=== PATIENT | female | born 1945 | race Caucasian/White ===

== ENCOUNTER 2016-07-16 18:20 | Emergency (ER) | payer MEDICARE, OTHER ==
[~2016-07-16] VITALS: Ht 162.6 cm; Wt 126.8 kg
[~2016-07-16 18:20] MED LIST: ASPI325T32 PO; CIPR-231 PO; METR500T PO
[2016-07-16 18:51] VITALS: BP 191/102; PULSE 96; RESP 18; O2SAT 98
[2016-07-17] MEDS ORDERED: CEFU500T61 PO (05:22)
== END 2016-07-16 20:00 | disposition left against medical advice (07) ==
LOC: SED 18:20
DX: K59.00 Constipation, unspecified (principal)

== ENCOUNTER 2016-07-16 23:46 | Emergency (ER) | payer MEDICARE, OTHER ==
[~2016-07-16] VITALS: Ht 162.6 cm; Wt 129.1 kg
[2016-07-16 23:48] VITALS: PULSE 116; RESP 20; O2SAT 96
[2016-07-17 00:15] VITALS: BP 149/91; PULSE 91; RESP 16; O2SAT 99
--- NOTE | 2016-07-17 00:36 | ED.REPORT ---
HPI-Abd Pain F 40 and Over Date of Service Jul 17, 2016 ED Provider: Pt is a 70 y/o female with a history of diabetes who reports to the ER complaining of abdominal pain onset yesterday at 11 am. She experiences intermittent projectile vomiting since onset. She also reports being constipated. She claims to have had 1 bowel movement the past 2 weeks. She took stool-softeners but they provided little relief. She denies fever. Nursing Notes Stated Complaint: ABDOMINAL PAIN, VOMITING Chief Complaint: Female Abdominal Pain Nursing Notes Reviewed: Yes Allergies: Coded Allergies: Penicillins (Verified Allergy, Intermediate, Anaphylaxis, 03/05/16) Sulfa (Sulfonamide Antibiotics) (Verified Allergy, Intermediate, rash, 03/05) doxycycline (Verified Allergy, Unknown, 03/05/16) Opioids - Morphine Analogues (Verified Adverse Reaction, Unknown, GI upset /combative, 03/05/16) acetaminophen (Verified Adverse Reaction, Unknown, nausea, 03/05/16) codeine (Verified Adverse Reaction, Unknown, angry, 06/02/16) hydromorphone (Verified Adverse Reaction, Unknown, depressed respiration, 03/05/16) ibuprofen (Verified Adverse Reaction, Unknown, upset stomach, 03/05/16) propoxyphene (Verified Adverse Reaction, Unknown, angry, 03/05/16) Scheduled Aspirin (Aspirin) 325 Mg Tablet 650 MG PO BID Ciprofloxacin (Cipro) 500 Mg Tablet 500 MG PO BID Ciprofloxacin (Cipro) 500 Mg Tablet 500 MG PO BID Metronidazole (Flagyl) 500 Mg Tablet 500 MG PO Q8H General Time Seen by MD: 00:36 Chief Complaint Abdominal pain Hx Obtained From: Patient Arrived By: Walk-in Sudden in Onset?: Yes Onset Occurred: 1 day ago Symptom Duration: Intermittent Progression since Onset: Waxes and wanes Location: : Diffuse Quality: Painful Severity: Current: Mild Associated with: Reports: Constipation, Vomiting (projectile), Denies: Fever Similar Sx Previous: No Past Medical History Past Medical History Hypertension Diabetes mellitus Hypothyroidism Diverticulitis Family History Noncontributory Social History Drug Use: Denies drug use Other Social History: Good social support, , Local resident Ambulatory Status Independent Review of Systems Respiratory: Denies: Non-productive cough GI: Reports: Abdominal pain, Constipation, Vomiting, Denies: Nausea Complete sys rev & neg: except as marked. Physical Exam Physical Exam Notes: Vital Signs Vital Signs (First) Date Time Temp Pulse Resp B/P Pulse Ox O2 Delivery O2 Flow Rate FiO2 07/16/16 23:48 36.5 116 20 96 07/17/16 00:15 149/91 Room Air Initial VS: Reviewed Head / Eyes: Atraumatic, Normocephalic, PERRL Neck: Supple, Non-tender, Full range of motion Extremities: Vascular intact, Neuro intact, No swelling, No tenderness Skin: Warm, Dry, No cyanosis Neurologic: Alert, Oriented, Nonfocal Psychiatric: Mood/affect normal, Behavior normal, Normal thought content General/Constitutional: Awake, Alert, Well nourished, Cooperative Respiratory / Chest: Breath sounds NL, Breath sounds = bilat, No respiratory distress Cardiovascular: Heart rate NL, Regular rhythm, Heart sounds NL Abdomen: Soft, Non-tender, BS normoactive Rectal exam: No fecal impaction. Scant brown stool guiac negative. Back: Atraumatic, Full range of motion Interpretation & Diagnostics Lab Results Interpretation Result Diagram: 07/17/16 0115 07/17/16 0115 Test 07/17/16 01:15 07/17/16 01:30 White Blood Count 9.2th/mm3 (3.8-10.1) Red Blood Count 4.95mil/mm3 (3.90-5.20) Hemoglobin 13.4g/dL (12.0-15.6) Hematocrit 41.1% (35.0-46.0) Mean Corpuscular Volume 83.0fL (81-100) Mean Corpuscular Hemoglobin 27.1pg (27.0-35.0) Mean Corpuscular Hemoglobin Concent 32.6% (32.0-37.0) Red Cell Distribution Width 14.0% (12.3-15.4) Platelet Count 235bil/L (150-400) Neutrophils (%) (Auto) 81.9% (40-74) Lymphocytes (%) (Auto) 9.9% (14-46) Monocytes (%) (Auto) 7.0% (4-12) Eosinophils (%) (Auto) 1.0% (0-5) Basophils (%) (Auto) 0.1% (0-3) Sodium Level 143mEq/L (134-144) Potassium Level 3.9mEq/L (3.5-5.2) Chloride Level 102mEq/L (97-108) Carbon Dioxide Level 28mmol/L (18-29) Blood Urea Nitrogen 14mg/dL (8-27) Creatinine 1.04mg/dL (0.57-1.00) Estimat Glomerular Filtration Rate 75mL/min (>59) Glucose Level 144mg/dL (60-99) Calcium Level 9.5mg/dL (8.5-10.1) Magnesium Level 2.1mg/dL (1.6-2.6) Total Bilirubin 0.5mg/dL (0.0-1.2) Aspartate Amino Transf (AST/SGOT) 13U/L (0-50) Alanine Aminotransferase (ALT/SGPT) 11U/L (0-32) Alkaline Phosphatase 73U/L (25-165) Total Protein 7.2g/dL (6.4-8.4) Albumin 4.3g/dL (3.4-5.0) Lipase 26U/L (13-60) Hold Molina Top Tube Received (Received) Urine Color Dark yellow (YELLOW) Urine Appearance Cloudy (CLEAR,HAZY) Urine pH 7.0 (5.0-8.0) Urine Specific [place] 1.015 (1.003-1.035) Urine Protein Tracemg/dL (NEG,TRACE) Urine Glucose (UA) Negativemg/dL (NEGATIVE) Urine Ketones Tracemg/dL (NEGATIVE) Urine Occult Blood Trace (NEGATIVE) Urine Nitrite Negative (NEGATIVE) Urine Bilirubin Negative (NEGATIVE) Urine Urobilinogen Normalmg/dL (NORMAL) Urine Leukocyte Esterase Trace (NEGATIVE) Urine RBC 0-2/hpf (0-2) Urine WBC 6-10/hpf (0-5) Urine Epithelial Cells Many/hpf (NONE-MOD) Urine Crystals None seen (NONE SEEN) Urine Bacteria Moderate/hpf (NONE-FEW) Urine Hyaline Casts None/lpf (NONE) Urine Granular Casts None seen (NONE SEEN) Urine Waxy Casts None seen (NONE SEEN) Urine Red Blood Cell Casts None seen (NONE SEEN) Urine White Blood Cell Casts None seen (NONE SEEN) Urine Mucus Present (None Seen) Urine Trichomonas None seen (NONE SEEN) Urine Yeast None (NONE SEEN) Urine Culture Reflexed Indicated Re-Eval/Medical Decision Counseled Regarding: Diagnosis, Need for follow-up, When/why to return to ED Discharge & Departure Shift Change Sign-Out Patient Care Transferred: Yes Discussed Complaint(s): Yes Laboratory Evaluation: Back, reviewed by me Imaging Studies: Ordered, not yet done Primary Impression: Abdominal pain Referrals: Stefano King MD (PCP) Care Transferred to: [facility] Transferred at: 02:49 Yonatan Garduno MD Jul 17, 2016 00:36 Bretin Slater Jul 17, 2016 00:42
[2016-07-17] MEDS ORDERED: 0.9% Sodium Chloride 1,000 ML IV ONE (00:46)
[2016-07-17] MEDS ORDERED: Pantoprazole 4 mg/mL 10 mL Inj IVPUSH ONE (00:50)
[2016-07-17] MEDS ORDERED: Ondansetron 2 mg/mL 2 mL Inj IVPUSH PRN (00:50)
[2016-07-17] MEDS ORDERED: HYDROmorphone 0.5 mg/0.5 mL iSecure Syringe IVPUSH PRN (00:50)
[2016-07-17 01:47] LABS: BASOPHILS % (AUTO) 0.1 % (0-3); Mean Corpuscular Hemoglobin 27.1 pg (27.0-35.0); NEUTROPHILS % (AUTO) 81.9 % (40-74); Platelet Count 235 bil/L (150-400)
[2016-07-17 02:00] LABS: Magnesium 2.1 mg/dL (1.6-2.6)
[2016-07-17 02:27] VITALS: BP 142/78; PULSE 65
[2016-07-17 02:28] VITALS: BP 148/86; PULSE 82
[2016-07-17 02:29] VITALS: BP 146/87; PULSE 93
[2016-07-17 02:44] LABS: APPEARANCE,URINE CLOUDY (CLEAR,HAZY); COLOR,URINE DARK YELLOW (YELLOW)
[2016-07-17 02:45] LABS: OCCULT BLOOD,URINE TRACE (NEGATIVE); UROBILINOGEN,URINE NORMAL (NORMAL)
[2016-07-17 05:06] VITALS: BP 142/66; PULSE 59; RESP 18; O2SAT 97
[2016-07-17] MEDS ORDERED: CEFU500T61 PO (05:22)
[2016-07-17 05:33] VITALS: BP 140/70; PULSE 61; RESP 18; O2SAT 100
--- NOTE | 2016-07-17 10:14 | DRSVH ---
PROCEDURE: X-RAY ACUTE ABDOMINAL SERIES ([id number]) INDICATIONS: abdomen pain TECHNIQUE: One view chest and two views of the abdomen were acquired. COMPARISON: None. FINDINGS: Surgical changes and devices: None. Chest: Lungs are clear. Heart size is normal. No pleural effusions. No pneumoperitoneum. Abdomen: Nonspecific bowel gas pattern. There is mild prominence of multiple small bowel loops withi n the midabdomen, otherwise bowel gas pattern is normal. No pneumatosis or bowel thickening. No pne umoperitoneum. Bones: No suspicious bony lesions. IMPRESSION: Nonspecific bowel gas pattern. If patient's symptoms persist, recommend repeat imaging or CT. Dictated by: Gonzalo Baca [facility] Interpreted: Chloe Dueñas MD on 07/17/2016 at 10:14 Transcribed by: KIM on 07/17/2016 at 10:14 Approved by: Chloe Dueñas MD, PhD on 07/17/2016 at 16:34
--- NOTE | 2016-07-17 10:24 | DRSVH ---
PROCEDURE: CT ABDOMEN AND PELVIS WITH CONTRAST ([id number]) INDICATIONS: abd pain TECHNIQUE: After the administration of intravenous contrast, 5 mm thick sections acquired from the diaphragm to the symphysis. 5 mm coronal and sagittal reformats were acquired. For radiation dose reduction, the following was used: automated exposure control, adjustment of mA and/or kV according to patient siz e. COMPARISON: [facility], CR, XR ABD ACUTE SERIES 3VW, 07/17/2016, 2:32. [facility], CT, CT ABD PELVIS W CON, 05/11/2016, 3:45. [facility], CT, CT ABD PELVIS W CON, , 11:46. FINDINGS: Image quality: Excellent. ABDOMEN: Lung bases: Lung bases are clear. Heart size is normal. Solid organs: Liver and spleen are normal in size and enhancement. Gallbladder is within normal domínguez its. Biliary system is non dilated. Pancreas enhances normally. No adrenal nodules. Kidneys demon strate normal size and enhancement, without hydronephrosis. Peritoneum and bowel: Bowel loops demonstrate normal caliber. Circumferential wall thickening involv ing the terminal ileum is not significantly changed compared to prior examination. Scattered divertic ada noted in the colon without evidence of diverticulitis. No free air. The appendix is normal. Small amount of low-density free fluid noted in the lower pelvis. Nodes and vessels: No retroperitoneal or mesenteric adenopathy by size criteria. Aorta and inferior vena cava are normal in size. Miscellaneous: Fat-containing umbilical hernia which contains a small amount of ascites necessarily c hanged compared to prior CT scan. PELVIS: Genitourinary: Bladder wall thickness is normal. 3.1 cm left adnexal cyst is noted. Miscellaneous: No inguinal hernias or adenopathy. Bones: No suspicious bony lesions. No vertebral body compression fractures. IMPRESSION: 1. Terminal ileitis not significantly changed compared to 05/11/2016. Findings remain concerning for inflammatory bowel disease such as Crohn's. 2. Colonic diverticulosis without evidence diverticulitis. 3. Small amount of free fluid in lower pelvis. 4. No evidence small bowel obstruction. Dictated by: Chloe Dueñas MD, PhD on 07/17/2016 at 10:22 Approved by: Chloe Dueñas MD, PhD on 07/17/2016 at 10:22
== END 2016-07-17 05:23 | disposition home or self-care (01) ==
LOC: SED 23:46
DX: N39.0 Urinary tract infection, site not specified (principal); B96.89 Other specified bacterial agents as the cause of diseases classified elsewhere; K52.9 Noninfective gastroenteritis and colitis, unspecified; K59.00 Constipation, unspecified; K44.9 Diaphragmatic hernia without obstruction or gangrene; I10 Essential (primary) hypertension; E03.9 Hypothyroidism, unspecified; E11.9 Type 2 diabetes mellitus without complications; Z79.82 Long term (current) use of aspirin; Z88.5 Allergy status to narcotic agent; Z88.0 Allergy status to penicillin; Z88.6 Allergy status to analgesic agent; Z88.2 Allergy status to sulfonamides; Z88.8 Allergy status to other drugs, medicaments and biological substances; Z88.1 Allergy status to other antibiotic agents
CPT/HCPCS: 36415; 74022; 74177; 80053; 81000; 83690; 83735; 85025; 87086; 87088; 96361; 96374; 96375; 99285; J2405; J7030; Q9967

== ENCOUNTER 2016-10-08 20:55 | Inpatient (IN) | payer MEDICARE, OTHER ==
[~2016-10-08] VITALS: Ht 165.1 cm; Wt 123.8 kg
[~2016-10-08 20:55] MED LIST changes: +CEFU500T61 PO
[2016-10-08 21:13] VITALS: BP 143/69; PULSE 43; RESP 16; O2SAT 100
[2016-10-08 21:25] LABS: BASOPHILS % (AUTO) 0.3 % (0-3); EOSINOPHILS % (AUTO) 2.2 % (0-5); MONOCYTES % (AUTO) 8.5 % (4-12); Mean Corpuscular Hemoglobin 27.4 pg (27.0-35.0); Mean Corpuscular Volume 84.8 fL (81-100); NEUTROPHILS % (AUTO) 71.4 % (40-74); Platelet Count 275 bil/L (150-400)
[2016-10-08] MEDS ORDERED: Ondansetron 2 mg/mL 2 mL Inj ONE ×2 (21:37→22:41)
--- NOTE | 2016-10-08 21:40 | ED.REPORT ---
HPI-Abd Pain F 40 and Over Date of Service Oct 08, 2016 ED Provider: Prieto Nair MD Patient 70 y/o female with a history of Afib, HTN, DM, diverticulitis and hypothyroidism who present to the ED via EMS with a "burning" RLQ abd pain onset 1 hour before arrival in the ED that radiates into her groin and has been progressively worsening. Her most resent bowel movement was a day and a half ago and she has been seen previously for constipation. Today just prior to onset the patient states "I had a feeling like I needed to have a BM, but I couldn't". She admits to feeling nauseated but denies dysuria, or any other bowel problems in recent history. Nursing Notes Stated Complaint: LOWER ABD PAIN Chief Complaint: Female Abdominal Pain Nursing Notes Reviewed: Yes Allergies: Coded Allergies: Penicillins (Verified Allergy, Intermediate, Anaphylaxis, 03/05/16) Sulfa (Sulfonamide Antibiotics) (Verified Allergy, Intermediate, rash, 03/05) doxycycline (Verified Allergy, Unknown, 03/05/16) Opioids - Morphine Analogues (Verified Adverse Reaction, Unknown, GI upset /combative, 03/05/16) acetaminophen (Verified Adverse Reaction, Unknown, nausea, 03/05/16) codeine (Verified Adverse Reaction, Unknown, angry, 06/02/16) hydromorphone (Verified Adverse Reaction, Unknown, depressed respiration, 03/05/16) ibuprofen (Verified Adverse Reaction, Unknown, upset stomach, 03/05/16) propoxyphene (Verified Adverse Reaction, Unknown, angry, 03/05/16) Scheduled Aspirin (Aspirin) 325 Mg Tablet 650 MG PO BID Cefuroxime Axetil (Cefuroxime) 500 Mg Tablet 500 MG PO BID Ciprofloxacin (Cipro) 500 Mg Tablet 500 MG PO BID Ciprofloxacin (Cipro) 500 Mg Tablet 500 MG PO BID Metronidazole (Flagyl) 500 Mg Tablet 500 MG PO Q8H General Time Seen by MD: 21:27 Chief Complaint Abdominal pain Hx Obtained From: Patient Arrived By: Ambulance Sudden in Onset?: Yes Onset Occurred: 46 - 59 minutes ago Symptom Duration: Since onset Progression since Onset: Gradually worsening Location: : Abdomen lower Quality: Burning Associated with: Denies: Fever, Vomiting Pertinent Negative: Relieved by nothing Past Medical History Past Medical History Hypertension Diabetes mellitus Hypothyroidism Diverticulitis Reports: Atrial fibrillation Past Surgical History L arm surgery Family History Noncontributory Smoking History Never Smoker Social History Drug Use: Denies drug use Other Social History: Good social support, , Local resident Ambulatory Status Independent Review of Systems GI: Reports: Abdominal pain, Constipation, Nausea, Denies: Vomiting Complete sys rev & neg: except as marked. Physical Exam Vital Signs Vital Signs (First) Date Time Temp Pulse Resp B/P Pulse Ox O2 Delivery O2 Flow Rate FiO2 10/08/16 21:13 35.9 43 16 143/69 100 Room Air Initial VS: Reviewed Head / Eyes: Atraumatic, Normocephalic, PERRL ENT: Mucous membranes moist, Conjunctiva normal Neck: Full range of motion Extremities: Vascular intact, Neuro intact, No swelling Skin: Warm, Dry, No cyanosis Neurologic: Alert, Oriented, Nonfocal Psychiatric: Mood/affect normal, Behavior normal, Normal thought content General/Constitutional: Awake, Alert Respiratory / Chest: Breath sounds NL, Breath sounds = bilat, No respiratory distress, No rales, No rhonchi, No wheezing, No stridor Cardiovascular: Heart rate NL, Regular rhythm, Heart sounds NL, Peripheral circulation NL Tenderness/Guarding/Rebound: Positive: Tender LUQ..., Tender RUQ... Bowel Sounds / Distention: Positive: Bowel sounds hyperactive Paplable firm mass in midlie above umbilicus. Firm, mildly tender. Not reucible. Interpretation & Diagnostics Lab Results Interpretation Result Diagram: 10/08/16212110/08/162121 Test 10/08/16 21:22 10/09/16 00:25 White Blood Count 8.8th/mm3 (3.8-10.1) Red Blood Count 4.42mil/mm3 (3.90-5.20) Hemoglobin 12.1g/dL (12.0-15.6) Hematocrit 37.5% (35.0-46.0) Mean Corpuscular Volume 84.8fL (81-100) Mean Corpuscular Hemoglobin 27.4pg (27.0-35.0) Mean Corpuscular Hemoglobin Concent 32.3% (32.0-37.0) Red Cell Distribution Width 14.1% (12.3-15.4) Platelet Count 275bil/L (150-400) Neutrophils (%) (Auto) 71.4% (40-74) Lymphocytes (%) (Auto) 17.4% (14-46) Monocytes (%) (Auto) 8.5% (4-12) Eosinophils (%) (Auto) 2.2% (0-5) Basophils (%) (Auto) 0.3% (0-3) Sodium Level 139mEq/L (134-144) Potassium Level 3.9mEq/L (3.5-5.2) Chloride Level 98mEq/L (97-108) Carbon Dioxide Level 23mmol/L (18-29) Blood Urea Nitrogen 16mg/dL (8-27) Creatinine 1.10mg/dL (0.57-1.00) Estimat Glomerular Filtration Rate 71mL/min (>59) Glucose Level 163mg/dL (60-99) Calcium Level 9.6mg/dL (8.5-10.1) Magnesium Level 2.1mg/dL (1.6-2.6) Total Bilirubin 0.3mg/dL (0.0-1.2) Aspartate Amino Transf (AST/SGOT) 21U/L (0-50) Alanine Aminotransferase (ALT/SGPT) 16U/L (0-32) Alkaline Phosphatase 75U/L (25-165) Troponin T 0.010ug/L (0.0-0.011) Total Protein 7.2g/dL (6.4-8.4) Albumin 3.9g/dL (3.4-5.0) Lipase 62U/L (13-60) Urine Color Yellow (YELLOW) Urine Appearance Clear (CLEAR,HAZY) Urine pH 7.0 (5.0-8.0) Urine Specific Chemult 1.010 (1.003-1.035) Urine Protein Negativemg/dL (NEG,TRACE) Urine Glucose (UA) Negativemg/dL (NEGATIVE) Urine Ketones Negativemg/dL (NEGATIVE) Urine Occult Blood Negative (NEGATIVE) Urine Nitrite Negative (NEGATIVE) Urine Bilirubin Negative (NEGATIVE) Urine Urobilinogen Normalmg/dL (NORMAL) Urine Leukocyte Esterase Trace (NEGATIVE) Urine RBC 0-2/hpf (0-2) Urine WBC 0-5/hpf (0-5) Urine Epithelial Cells Moderate/hpf (NONE-MOD) Urine Crystals None seen (NONE SEEN) Urine Bacteria Few/hpf (NONE-FEW) Urine Hyaline Casts None/lpf (NONE) Urine Granular Casts None seen (NONE SEEN) Urine Waxy Casts None seen (NONE SEEN) Urine Red Blood Cell Casts None seen (NONE SEEN) Urine White Blood Cell Casts None seen (NONE SEEN) Urine Mucus Present (None Seen) Urine Trichomonas None seen (NONE SEEN) Urine Yeast None (NONE SEEN) Urinalysis Comment None Urine Culture Reflexed Indicated General Lab Results Interp 1: Labs reviewed ECG Interpretation Time: 21:15 Interpreted by: ED physician Rhythm / Conduction: Bradycardia (45) CT Abd / Pelvis Interpretation Conclusion: Findings suggestive of SBO whoch appears secondary to incarceration of a loop of small bowel within a ventral abdominal hernia. Diverticulosis. Findings suggestive of a small 2.7cm left ovarian cyst. Study type: Abdominal CT IV contrast Interpretation / Wet Read by: Interpret - Radiologist Re-Eval/Medical Decision Med Decision/Clinical Course Severe diffuse abd pain, abrupt in onset. Exam and imaging consistent with incarcerated hernia/SBO. Reported adverse RXN to opiates not observed here today with use of morphine. IV fluids and anti emetics given, NG ordered. Will admit to surgery. Bradycardia noted, ECG O/W normal and trop normal Re-Evaluation/Progress : Time of Eval: 01:01 Re-Evaluation/Progress Note: Updated pt of labs and imaging results. Recommended admission. Pt understands and agrees with plan. All questions addressed. Consultation : Referral / Consult Name: Kelby Crane MD Consulted With: Surgeon Sap Business Analyst: Will see patient, Accepts admit Note: asks for NG to be placed Counseled Regarding: Diagnosis, Lab results, Need for admission Discharge & Departure Primary Impression: Incarcerated ventral hernia Additional Impressions: Small bowel obstruction Sinus bradycardia Disposition: ADMITTED TO HOSPITAL Discharge Condition All VS Reviewed: Yes Referrals: Stefano King MD (PCP) Scribe Attestation Portions of this note were transcribed by Guillermo Mays and Jalyn Rader. I, Dr. Nair personally performed the history, physical exam and medical decision- making; I reviewed and confirmed the accuracy of the information in the transcribed note. Signed by: Guillermo Mays and Jalyn Rader, [place], 10/09/2016 and 0102. copies to: Stefano King MD, Donald L MD Oct 08, 2016 21:40 Guillermo Mays Oct 08, 2016 21:45 Jalyn Rader Oct 08, 2016 23:13
[2016-10-08 21:48] LABS: Magnesium 2.1 mg/dL (1.6-2.6)
[2016-10-09] VITALS (18 sets, daily range): BP systolic 127–194; BP diastolic 68–145; PULSE 48–100; RESP 12–18; O2SAT 95–100
[2016-10-09] MEDS ORDERED: ProchlorPERazine 5 mg/mL 2 mL Inj IVPUSH ONE (00:40)
[2016-10-09 01:05] LABS: APPEARANCE,URINE CLEAR (CLEAR,HAZY); COLOR,URINE YELLOW (YELLOW); OCCULT BLOOD,URINE NEGATIVE (NEGATIVE); UROBILINOGEN,URINE NORMAL (NORMAL)
[2016-10-09] MEDS: Lactated Ringer's 1,000 ML IV SCH ×3 (01:26→04:50)
[2016-10-09] MEDS ORDERED: Morphine PCA 1 mg/mL 30 mL Inj IV PRN (01:30)
[2016-10-09] MEDS ORDERED: Ondansetron 2 mg/mL 2 mL Inj IVPUSH PRN ×2 (01:30→06:30)
[2016-10-09] MEDS ORDERED: Alum-Mag Hydrox-Simeth 30 mL Suspension PO PRN (01:30)
[2016-10-09] MEDS ORDERED: Lidocaine 2% 6mL Topical Jelly ONE (01:39)
[2016-10-09] MEDS ORDERED: Glycopyrrolate 0.2 MG/ML 1mL Inj ONE (01:40)
[2016-10-09] MEDS ORDERED: Propofol 10,000 mCg/mL 20 mL Inj ONE (01:40)
[2016-10-09] MEDS ORDERED: Rocuronium 10 mg/mL 5 mL Inj ONE (01:40)
[2016-10-09] MEDS ORDERED: Ondansetron 2 mg/mL 2 mL Inj ONE (01:40)
[2016-10-09] MEDS ORDERED: Ketamine 10 mg/mL 20 mL Inj ONE (01:40)
[2016-10-09] MEDS ORDERED: fentaNYL-PF 50 mCg/mL 2 mL Inj ONE (01:40)
[2016-10-09] MEDS ORDERED: Dexamethasone 4 mg/mL Inj ONE (01:40)
[2016-10-09] MEDS ORDERED: Neostigmine 1 mg/mL 10 mL Inj ONE (01:40)
[2016-10-09] MEDS ORDERED: HYDROmorphone 2 mg/mL Inj ONE (01:40)
--- NOTE | 2016-10-09 02:30 | NUR ---
Arrived on Unit Patient arrived on floor from ED in stable condition. Patient ambulated from stretcher to bed with SBA. Patient reported 7/10 abdominal pain. Denies nausea at this time. NG to continuous suction. Patient orientated to call light, bed, and phone. Video played. at bedside. Call light and tray table within reach. Will continue to monitor patient hourly.
[2016-10-09] MEDS ORDERED: Clindamycin Inj 900 MG in IV Premix 1 EACH IV STA (03:49)
--- NOTE | 2016-10-09 04:33 | PCM.HPANE ---
Patient Data Date of Service: Oct 09, 2016 Surgeon Admitting Provider:Kelby Crane MD Attending Provider:Kelby Crane MD Primary Care Physician:Stefano King MD Other Provider: Reason for Visit Incarcerated Ventral Hernia Ht/WT & BMI Height (Feet): 5 Height (Inches): 5.00 Weight (Kilograms): 121.900 Body Mass Index 44.78 Allergies Coded Allergies: Penicillins (Verified Allergy, Intermediate, Anaphylaxis, 03/05/16) Sulfa (Sulfonamide Antibiotics) (Verified Allergy, Intermediate, rash, 03/05) doxycycline (Verified Allergy, Unknown, 03/05/16) Opioids - Morphine Analogues (Verified Adverse Reaction, Unknown, GI upset /combative, 03/05/16) acetaminophen (Verified Adverse Reaction, Unknown, nausea, 03/05/16) codeine (Verified Adverse Reaction, Unknown, angry, 06/02/16) hydromorphone (Verified Adverse Reaction, Unknown, depressed respiration, 03/05/16) ibuprofen (Verified Adverse Reaction, Unknown, upset stomach, 03/05/16) propoxyphene (Verified Adverse Reaction, Unknown, angry, 03/05/16) Diabetes History Hx Diabetes?: Yes Type of Diabetes: Diet Controlled Glycemic Control: Diet Controlled MRSA MRSA: No Medications Hypertension Medication: No Home Meds Incl Beta Neema: No Reported Medications Aspirin 325 Mg [id number] Mg PO QAM #1 BOTTLE 03/05/16 Discontinued Scripts Cefuroxime Axetil (Cefuroxime)500 Mg [id number] Mg PO BID #14 TAB Prov:Jose Ha MD 07/17/16 Ciprofloxacin (Cipro)500 Mg [id number] Mg PO BID #20 TABLET Ref 0 Prov:Jose Ha MD 05/11/16 Metronidazole (Flagyl)500 Mg [id number] Mg PO Q8H #21 TABLET Prov:Van Menendez DO 03/05/16 Ciprofloxacin (Cipro)500 Mg [id number] Mg PO BID #14 TABLET Ref 0 Prov:Van Menendez DO 03/05/16 History History of ENT Problems?: No Hx of Heart Problems?: Yes Cardiovascular History: Positive for:: Atrial Fibrillation (remote, paroxysmal ) Hypertension Denies:: Chest Pain Congestive Heart Failure Coronary Artery Disease Heart Murmur Hx of Respiratory Problem?: No Respiratory History: Denies:: Asthma COPD Cough Emphysema Tuberculosis Use of Inhalers / NEBS Hx Neurologic Problems?: No Neurological History: Denies:: CVA Peripheral Neuropathy Seizures Hx of GI Problems?: Yes Gastrointestinal History: Positive for:: Diverticulitis Denies:: Gastroesphageal Reflux Heartburn Liver Disease Other GI Pertinent History: strangulated ventral hernia, bowel obstruction Hx of Problems?: No Female Hx: Denies:: Currently Hx Musculoskeletal Problems?: Yes Musculoskeletal History: Positive for:: Musculoskeletal Trauma Denies:: Rheumatoid Arthritis Hx of Psycho/Social Problems?: No Hx Surgeries?: Yes Hx Any Other Health Problems?: Yes History Blood Transfusions: Positive for:: Accept Blood Products? Denies:: Blood Transfuse Reaction Blood Transfusions Hx Diabetes: Yes Hx Alcohol Use: NoHx Substance Use: No Smoking Status: Never Smoker Have You Smoked inLast 12 mo: No Stop/Bang Treated for Sleep Apnea?: No Do You Have a CPAP Machine?: No S-Snoring: Do You Snore Loudly: No T-Tired: feel tired, fatigued: Yes O-Obsered: Observed not breath: No P-Blood Pressure: treated: No B- Body Mass Index > 35 kg/m2: Yes A- Age over 50: Yes N- Neck Large Circumference: No G- Gender Male: No ARON Total Score: 3 ARON Risk Assessment: High Risk, =/>3 Yes ARON Category 2: Yes Risk Assessment Category Category 1A: Patient has history of documented sleep apnea, and HAS NOT received any narcotic, sedative or anesthesia administration during this stay. Category 1B: Patient has history of documented sleep apnea, and HAS received any narcotic , sedative or anesthesia administration during this stay Category 2: Patient has SUSPECTED Obstructive Sleep Apnea, and HAS received any narcotic , sedative or anesthesia administration during this stay. Category 3: Patient has SUSPECTED Obstructive Sleep Apnea and HAS NOT received narcotic, sedative or anesthesia administration during this stay. Category 4: Outpatient in Procedural Areas with known sleep apnea or who screen positive for High Risk via the STOP/BANG questionnaire. Exam Exam Vital Signs Vital Signs Date Time Temp Pulse Resp B/P Pulse Ox O2 Delivery O2 Flow Rate FiO2 10/09/16 02:35 36.6 53 16 176/78 97 Room Air 10/09/16 02:16 35.9 48 16 158/72 99 Room Air 10/09/16 01:59 48 16 158/72 99 Room Air 10/09/16 00:06 52 18 146/68 98 Room Air 10/08/16 21:13 35.9 43 16 143/69 100 Room Air General Appearance: Alert, Oriented X3, Cooperative, Mild Distress HEENT/AIRWAY: MP 2, Neck Movement (from), Mouth Opening (3 fb), Other (tmd 3 fb , NGT in situ) Lungs: Clear to Auscultation, Normal Air Movement Heart: Exam Unremarkable, Regular Rate/Rhythm, Murmur (systolic II/ best in RUSB) Meds/Labs/Diagnostics Admission Meds Current Medications Ondansetron HCl (Zofran Inj) 4 mg STK-MED ONCE .ROUTE Last administered on 10/08 21:43; Start 10/08/16 at 21:37; Stop 10/08/16 at 21:39; Status DC Morphine Sulfate (Morphine 2 mg/ mL Syringe) 2 mg ONCE ONCE IVPUSH Last administered on 10/08/16 22:11; Start 10/08/16 at 21:50; Stop 10/08/16 at 21:51 ; Status DC Morphine Sulfate (Morphine 2 mg/ mL Syringe) 2 mg ONCE ONCE IVPUSH Last administered on 10/08/16 22:38; Start 10/08/16 at 22:25; Stop 10/08/16 at 22:26 ; Status DC Ondansetron HCl (Zofran Inj) 4 mg STK-MED ONCE .ROUTE Last administered on 10/08 22:58; Start 10/08/16 at 22:41; Stop 10/08/16 at 22:43; Status DC Morphine Sulfate (Morphine 2 mg/ mL Syringe) 2 mg ONCE ONCE IVPUSH Last administered on 10/08/16 23:59; Start 10/09/16 at 00:00; Stop 10/09/16 at 00:01 ; Status DC Prochlorperazine 5 mg 5 mg ONCE ONCE IVPUSH Last administered on 10/09/16 00: 54; Start 10/09/16 at 00:40; Stop 10/09/16 at 00:41; Status DC Lactated Ringer's (Lr) 1,000 ml @ 125 mls/hr Q8H IV Last administered on 02:58; Start 10/09/16 at 01:26 Labs Test 10/08/16 21:22 10/09/16 00:25 White Blood Count 8.8th/mm3 (3.8-10.1) Red Blood Count 4.42mil/mm3 (3.90-5.20) Hemoglobin 12.1g/dL (12.0-15.6) Hematocrit 37.5% (35.0-46.0) Mean Corpuscular Volume 84.8fL (81-100) Mean Corpuscular Hemoglobin 27.4pg (27.0-35.0) Mean Corpuscular Hemoglobin Concent 32.3% (32.0-37.0) Red Cell Distribution Width 14.1% (12.3-15.4) Platelet Count 275bil/L (150-400) Neutrophils (%) (Auto) 71.4% (40-74) Lymphocytes (%) (Auto) 17.4% (14-46) Monocytes (%) (Auto) 8.5% (4-12) Eosinophils (%) (Auto) 2.2% (0-5) Basophils (%) (Auto) 0.3% (0-3) Sodium Level 139mEq/L (134-144) Potassium Level 3.9mEq/L (3.5-5.2) Chloride Level 98mEq/L (97-108) Carbon Dioxide Level 23mmol/L (18-29) Blood Urea Nitrogen 16mg/dL (8-27) Creatinine 1.10mg/dL (0.57-1.00) Estimat Glomerular Filtration Rate 71mL/min (>59) Glucose Level 163mg/dL (60-99) Calcium Level 9.6mg/dL (8.5-10.1) Magnesium Level 2.1mg/dL (1.6-2.6) Total Bilirubin 0.3mg/dL (0.0-1.2) Aspartate Amino Transf (AST/SGOT) 21U/L (0-50) Alanine Aminotransferase (ALT/SGPT) 16U/L (0-32) Alkaline Phosphatase 75U/L (25-165) Troponin T 0.010ug/L (0.0-0.011) Total Protein 7.2g/dL (6.4-8.4) Albumin 3.9g/dL (3.4-5.0) Lipase 62U/L (13-60) Urine Color Yellow (YELLOW) Urine Appearance Clear (CLEAR,HAZY) Urine pH 7.0 (5.0-8.0) Urine Specific Kipling 1.010 (1.003-1.035) Urine Protein Negativemg/dL (NEG,TRACE) Urine Glucose (UA) Negativemg/dL (NEGATIVE) Urine Ketones Negativemg/dL (NEGATIVE) Urine Occult Blood Negative (NEGATIVE) Urine Nitrite Negative (NEGATIVE) Urine Bilirubin Negative (NEGATIVE) Urine Urobilinogen Normalmg/dL (NORMAL) Urine Leukocyte Esterase Trace (NEGATIVE) Urine RBC 0-2/hpf (0-2) Urine WBC 0-5/hpf (0-5) Urine Epithelial Cells Moderate/hpf (NONE-MOD) Urine Crystals None seen (NONE SEEN) Urine Bacteria Few/hpf (NONE-FEW) Urine Hyaline Casts None/lpf (NONE) Urine Granular Casts None seen (NONE SEEN) Urine Waxy Casts None seen (NONE SEEN) Urine Red Blood Cell Casts None seen (NONE SEEN) Urine White Blood Cell Casts None seen (NONE SEEN) Urine Mucus Present (None Seen) Urine Trichomonas None seen (NONE SEEN) Urine Yeast None (NONE SEEN) Urinalysis Comment None Urine Culture Reflexed Indicated Plan Impression Patient chart reviewed, patient interviewed and anesthestic plan with risks, benefits, and alternatives discussed, and informed consent obtained. NPO Status: last ate 2 pm 10/08 ASA Physical Status: ASA3 Plus Emergency (morbid obesity and incarcerated hernia) Anesthetic Plan: GA Bene/Risks/Altern/Consents: Yes HP Complete Prior to Induction: Yes Eloy Miguel MD Oct 09, 2016 04:33
--- NOTE | 2016-10-09 04:45 | NUR ---
Off Unit Patient off the floor to PACU via bed.
--- NOTE | 2016-10-09 04:45 | HP ---
[address] [address] HISTORY AND PHYSICAL PATIENT: GUILLERMO GUERRA : 1945 MR#: [id number] ADMIT: 10/09/2016 JOB ID: [id number] CHIEF COMPLAINT: Abdominal pain. HISTORY OF PRESENT ILLNESS: The patient is an obese 70-year-old woman who was in her usual state of health until yesterday afternoon when she suddenly developed a severe pain diffusely across her mid abdomen, associated with some nausea. Pain brought her to her knees in the bathroom, and has been unrelenting since that time. She has not had any vomiting. Her history over the past 6 months has been recurrent bouts of lower abdominal pain, and she has been diagnosed clinically with sigmoid diverticulitis, treated with several rounds of oral antibiotics. She has never had a colonoscopy. She has had some chronic alternating constipation and diarrhea since that diagnosis. In the emergency department she was found to be bradycardic with a heart rate in the high 40s. She had severe abdominal pain. A CT scan of the abdomen and pelvis was obtained with contrast, which showed a hernia at the umbilicus containing a loop of small bowel with obstruction and proximal small bowel dilation. There was no free fluid. There was diverticulosis of the sigmoid colon and no other abnormalities. PAST MEDICAL HISTORY: Diabetes mellitus diet controlled, hypothyroidism, diverticulitis, hypertension. PAST SURGICAL HISTORY: Bilateral knee arthroscopy. MEDICATIONS: At home: 1. Aspirin 325. 2. Cifuroxime. 3. Cipro. 4. Metronidazole. ALLERGIES: 1. PENICILLINS. 2. SULFA. 3. DOXYCYCLINE. 4. CODEINE. 5. HYDROMORPHONE. 6. IBUPROFEN. 7. PROPOXYPHENE. Note that Tylenol was listed as an allergy, but direct discussion with the patient about that fact she states that she tolerates Tylenol just fine. SOCIAL HISTORY: She is a nonsmoker. She denies alcohol and illicit drug use. FAMILY HISTORY: Noncontributory. REVIEW OF SYSTEMS: A 10-point review of systems is otherwise negative except as described in history of present illness. PHYSICAL EXAMINATION: Body mass index 44.7, temperature 36.6, pulse 53, respirations 16, blood pressure 176/78, saturation 97% on room air. In general, she is resting in bed in mild distress from abdominal pain. HEENT: The nasogastric tube has been placed. Neck no lymphadenopathy. Chest clear to auscultation bilaterally. Heart regular rate and rhythm, bradycardia. Abdomen is soft, obese, nondistended. There is a firm 5 cm mass at the umbilicus, which is nonreducible. There is no erythema of the skin. There is no rebound or guarding. Extremities no edema. Neuro no deficits. Psychiatric affect is appropriate. LABORATORIES: White blood cell count is 8.8, hematocrit 37.5, platelets 275, creatinine 1.1. Glucose 163. Albumin 3.9. Urinalysis shows trace leukocyte esterase and moderate epithelial cells, culture is in progress. IMAGING: As described in history of present illness. ASSESSMENT AND PLAN: A 70-year-old woman with an acute umbilical hernia with bowel obstruction. We have discussed the pathophysiology of umbilical hernias. I think the likelihood of actual small bowel strangulation in this setting is relatively low, but is a real possibility. For that reason, I am recommending that we proceed to the operating room as soon as the OR crew can get here for an umbilical hernia repair with mesh and possible small bowel resection if indicated. Technical aspects of surgery were discussed. Risks of surgery were discussed, including, but not limited to, bleeding, infection, wound healing complications. She will need to be in the hospital for at least 48 hours after surgery, and some degree of a postoperative ileus would be expected. All of her questions were answered.
[2016-10-09] MEDS ORDERED: Bupivacaine 0.5%/EPI 50 mL Inj INFILTRATE ONE (05:35)
[2016-10-09] MEDS ORDERED: Labetalol 5 mg/mL 4 mL Inj IV PRN (06:30)
[2016-10-09] MEDS ORDERED: Lactated Ringer's 1,000 ML IV SCH (06:30)
[2016-10-09] MEDS ORDERED: HYDROmorphone 1 mg/mL Inj IVPUSH PRN (06:30)
[2016-10-09] MEDS ORDERED: Phenylephrine 10,000 mCg/mL Inj IVPUSH PRN (06:30)
[2016-10-09] MEDS ORDERED: hydrALAZINE 20 mg/mL Inj IVPUSH PRN (06:30)
[2016-10-09] MEDS ORDERED: EPHEDrine Sulfate 50 mg/mL Inj IVPUSH PRN (06:30)
[2016-10-09] MEDS ORDERED: fentaNYL-PF 50 mCg/mL 2 mL Inj IVPUSH PRN (06:30)
[2016-10-09] MEDS ORDERED: MetoCLOpramide 5 mg/mL 2 mL Inj IVPUSH PRN (06:30)
[2016-10-09] MEDS ORDERED: Lactated Ringer's 500 ML IV PRN (06:30)
[2016-10-09] MEDS ORDERED: Atropine 0.4 mg/mL Inj IVPUSH PRN (06:30)
--- NOTE | 2016-10-09 06:40 | PCM.SURGOP ---
Surgical Operative Report Date of Service: Oct 09, 2016 Pre Operative Diagnosis Incarcerated umbilical hernia with small bowel obstruction Post Operative Diagnosis Strangulated umbilical hernia with small bowel obstruction Procedure: Exploratory laparotomy, small bowel resection with anastomosis Surgeon and Rabbet Operator: Surgeon: Kelby Crane MD Assistants: Jay Mancuso PA-C Indication for Procedure 70-year-old morbidly obese woman who presented to the emergency department with severe acute onset of abdominal pain. She was found to be intermittently bradycardic. White blood cell count and differential was normal. She had a CT scan of the abdomen and pelvis which showed a hernia at the umbilicus containing a loop of small bowel with obstructive changes. After discussion of risks and benefits, she agreed to proceed with umbilical hernia repair, possible bowel resection. Findings: There was a short segment of acutely strangulated small bowel. 14 cm of small bowel was resected. Procedure Details After smooth induction of general anesthesia, she was placed in the supine position, and was prepped and draped in wide sterile fashion. A procedural pause was performed according to the SCOAP checklist, and all were found to be in agreement. A supraumbilical midline incision was made. Dissection was carried down with electrocautery through the subcutaneous tissue until the hernia sac was encountered and opened. There was some bloody fluid within the sac. Immediately, there was a purple acutely strangulated segment of small bowel. The incision was extended above and below the umbilicus. The fascia was opened down to the symphysis pubis, and above the initial fascial defect. Once the fascia was released, there was a 10 cm segment of small bowel which remained acutely strangulated, and did not reperfuse. Small bowel resection was performed. A KENNEDY 75 mm stapler was used with blue loads on the proximal and distal viable small bowel. The mesentery was incised on the peritoneum, and divided with clamps and 3-0 silk ties. Ex vivo, the excised segment measured 14 cm. It was sent for permanent pathology. A stapled side to side anastomosis was performed using another firing of the KENNEDY 75 mm stapler with a blue load, and the enterotomies were closed with a TA-30 stapler with a blue load. The staple lines were oversewn with interrupted 3-0 silk Lembert sutures. The crotch of the anastomosis was reinforced with a 3-0 silk suture. The mesenteric defect was closed with a running 3-0 silk suture. The remainder of the small bowel was viable, and there were no other fascial defects. The midline fascia was then closed using a combination of running looped 0 PDS suture 2, as well as several interrupted #1 Prolene sutures in a figure-of- eight. The subcutaneous tissue was irrigated. The skin was closed loosely with gato. A Echols catheter was placed at the end of the operation. At the end of the case all needle and sponge counts were correct 2. The patient was awakened from anesthesia without difficulty, and taken to the recovery room in satisfactory condition, having tolerated the procedure well. Complications There were no periprocedural complications identified. Surgical Specimen Removed: Yes Specimen sent to Pathology: Yes Surgical Specimen description: Small bowel Anesthetic Plan: GA Grafts, Implants: None Output, Estimated Blood Loss: 50 Blood Administration during franks: No Catheters: Urethral 2 Way Echols copies to: Stefano King MD, Joshua D MD Oct 09, 2016 06:40
[2016-10-09] MEDS ORDERED: Glucose 40% Oral Gel 15 Gm Tube PO PRN (07:00)
--- NOTE | 2016-10-09 07:06 | PCM.ANEP1 ---
Post Anesthesia Phase 1 PACU Phase 1 Assessment Date of Service: Oct 09, 2016 Vital Signs Vital Signs Date Time Temp Pulse Resp B/P Pulse Ox O2 Delivery O2 Flow Rate FiO2 10/09/16 06:45 36.3 100 12 137/70 100 Simple Mask 8 10/09/16 02:35 36.6 53 16 176/78 97 Room Air 10/09/16 02:16 35.9 48 16 158/72 99 Room Air 10/09/16 01:59 48 16 158/72 99 Room Air 10/09/16 00:06 52 18 146/68 98 Room Air Anesthetic Administered: GA Level of Alertness: Sleepy, easy to arouse CURTIS's with Equal Strength: Yes Pain: Yes Pain Scale Score: 5 Nausea or Vomiting: No Oxygen Delivery: Simple Mask Lungs: Clear to Auscultation, Normal Air Movement Dermatome Level: Full Sensation Eloy Miguel MD Oct 09, 2016 07:06
[2016-10-09] MEDS: Insulin LISPRO 300 Unit/3 mL Inj SUBQ SCH ×4 (08:00→22:00)
[2016-10-09] MEDS: Polyethylene Glycol (PEG) 17 Gm Powder PO SCH (08:30)
[2016-10-09] MEDS: Dextrose 5% Lactated Ringer's 1,000 ML IV SCH ×2 (08:34→19:16)
[2016-10-09] MEDS ORDERED: 0.9% Sodium Chloride 100 ML ONE (08:53)
[2016-10-09] MEDS: Acetaminophen IV 1,000 MG in IV Premix 1 EACH IV PRN (08:59)
--- NOTE | 2016-10-09 09:49 | DRSVH ---
PROCEDURE: CT ABDOMEN AND PELVIS WITH CONTRAST ([id number]) INDICATIONS: Abdominal pain. TECHNIQUE: After the administration of oral and intravenous contrast, 5 mm thick sections acquired from the diap hragms to the symphysis. 5 mm thick coronal and sagittal reformats were performed. For radiation do se reduction, the following was used: automated exposure control, adjustment of mA and/or kV accordi ng to patient size. COMPARISON: [facility], CT, CT ABD PELVIS W CON, 03/05/2016, 11:46. [facility], CT, CT ABD PELVIS W CON, 07/17/2016, 3:41. FINDINGS: Image quality: Excellent. ABDOMEN: Lung bases: Lung bases are clear. Heart size is normal. There is a small hiatal hernia with mild c oncentric wall thickening of the distal esophagus. Solid organs: There is hypoattenuation of the liver consistent with fatty infiltration. The spleen i s normal in size. The gallbladder appears within normal limits. Biliary system is non-dilated. Huynh creas enhances normally. No adrenal nodules. Kidneys are normal in size and enhancement, without hy dronephrosis. Peritoneum and bowel: There is mild dilatation of a few small bowel loops in the mid abdomen measuri ng up to 2.8 cm associated with a herniated segment of small bowel in a supraumbilical hernia. There is a small amount of fluid and fat stranding within the hernia sac. The small bowel is nondistended distal to the hernia. Proximal loops of duodenum and jejunum are also normal in caliber. The findi ngs suggest a mild or early obstruction. The colon is normal in caliber and wall thickness. There i s colonic diverticulosis without acute diverticulitis. Nodes and vessels: No retroperitoneal or mesenteric adenopathy. Aorta and inferior vena cava are no rmal in caliber. There is a small splenic artery aneurysm measuring up to 1 cm which appears stable in size compared to the prior studies. Miscellaneous: As noted above, there is a supraumbilical ventral abdominal hernia containing a segmen t of small bowel and a small amount of fluid. PELVIS: Genitourinary: Bladder wall thickness is normal. There is a left adnexal cyst measuring up to 3.1 c m which appears stable in size compared to the prior studies. Miscellaneous: No inguinal hernias or adenopathy. Bones: No suspicious bony lesions. No vertebral body compression fractures. IMPRESSION: 1. Small supraumbilical abdominal hernia containing a segment of small bowel with associated mild se gmental proximal bowel dilatation. Findings are compatible with an early or mild obstruction. Small amount of associated fluid within the hernia sac raises the possibility of developing bowel strangul ation. Recommend correlation with clinical history and exam. 2. Diverticulosis without acute diverticulitis. 3. Hepatic steatosis. 4. Stable left adnexal cyst measuring up to 3.1 cm. 5. Small hiatal hernia with mild wall thickening in the distal esophagus suggesting mild esophagitis . Dictated by: Waqas Godfrey M.D. on 10/09/2016 at 9:35 Approved by: Waqas Godfrey M.D. on 10/09/2016 at 9:47
[2016-10-09 10:21] LABS: APPEARANCE,URINE HAZY (CLEAR,HAZY); COLOR,URINE YELLOW (YELLOW); OCCULT BLOOD,URINE NEGATIVE (NEGATIVE); PH,URINE 6.5 (5.0-8.0); UROBILINOGEN,URINE NORMAL (NORMAL)
[2016-10-09] MEDS: Heparin 5,000 Unit/mL Inj SUBQ SCH ×2 (11:50→17:46)
[2016-10-09] MEDS: Famotidine Inj 20 MG in IV Premix 1 EACH IV SCH ×2 (11:51→23:34)
--- NOTE | 2016-10-09 12:51 | NUR ---
Social Work: Initial Assessment Data & assessment: See initial Assessment. EMR reviewed. Patient is a 70 y/o/female that admitted for Incarcerated ventral hernia per H&P. Garage Manager met with patient and patient's two sisters, Trinidad and fiona, at bedside to discuss discharge planning, SW role reviewed and discharge planning discussed. Patient was alert and oriented x 3. Patient confirmed that her NOK is her Senthil Mccloud [phone]. patient states that she does have an Advance Directive/DPOA. Patient reported that her daughter, Monica [phone], is her DPOA. SW requested a copy of DPOA. Patient confirmed that her PCP is Dr. Stefano King. patient also confirmed that her insurance is Medicare and [employer] [place] [employer]. Patient does not have any LTC or VA benefits. Patient lives in a one story home with her spouse with no steps to enter. Patient is independent at baseline and does not have any DME. Patient has not had any SNF or HH in the past. SW will continue to follow patient for discharge planning needs. SW wrote contact information on patient's white board. Plan: SW will continue to follow patient for discharge planning needs. Addendum: 10/09/16 at 1310 by LION CARRERA Amended: Links added.
[2016-10-09] MEDS: MeTOProlol 1 mg/mL 5 mL Inj IVPUSH SCH ×2 (13:51→20:45)
--- NOTE | 2016-10-09 15:58 | NUR ---
Post op Pt on unit at 0741 in bed from PACU. Report from INTAKE COUNSELOR. Pt very drowsy, but awakens to voice and is oriented x 3. Pt on 3L NC, Echols in place and draining to gravity, SCD's on and reconnected, IV infusing LR with surgical tubing. Abd dressing of gauze and hypafix tape C,D&I. Pt has no c/o pain, but did have some retching which has now subsided. Pt declines antiemetic at this time. Connected pt to [facility] and is sating at 99% on O2.
--- NOTE | 2016-10-09 16:02 | NUR ---
Nausea/BP Pt having nausea and vomiting post op, Reglan given, which helped, but only shortly. After multiple episodes of vomiting small amounts of bile Zofran was given. Vomiting has subsided. Pt's BP 194/145 at 1006 and HR 90. Paged MD and new orders for medication given. When flushing IV prior to push, IV was leaking. New IV obtained and BP prior to medication was 162/103 and HR was 90. Will recheck BP prior to end of shift.
[2016-10-10] VITALS (9 sets, daily range): BP systolic 148–180; BP diastolic 78–98; PULSE 61–81; RESP 16–20; O2SAT 93–97
[2016-10-10] MEDS: MeTOProlol 1 mg/mL 5 mL Inj IVPUSH SCH ×3 (01:11→12:29)
[2016-10-10] MEDS: Heparin 5,000 Unit/mL Inj SUBQ SCH ×4 (01:11→23:44)
[2016-10-10] MEDS: Acetaminophen IV 1,000 MG in IV Premix 1 EACH IV PRN (03:00)
--- NOTE | 2016-10-10 04:01 | NUR ---
Pain Patient had very little pain at the beginning of the shift, but pain has begun to increase to 7/10. IV Tylenol given. Patient states that her behavior becomes unpredictable and sometimes mean when taking opioids. Discussed use of PATTERN PERFORATING MACHINE OPERATOR with patient, and patient stated she would like to wait and see how she feels later. Patient resting quietly in bed after IV Tylenol. NG tube has very little output so far this shift, running Continuous Low. Care continues.
[2016-10-10] MEDS: Dextrose 5% Lactated Ringer's 1,000 ML IV SCH ×3 (04:31→14:46)
[2016-10-10 05:39] LABS: BASOPHILS % (AUTO) 0.2 % (0-3); EOSINOPHILS % (AUTO) 0.2 % (0-5); MONOCYTES % (AUTO) 9.8 % (4-12); Mean Corpuscular Hemoglobin 27.3 pg (27.0-35.0); Mean Corpuscular Volume 86.1 fL (81-100); NEUTROPHILS % (AUTO) 77.6 % (40-74); Platelet Count 223 bil/L (150-400)
--- NOTE | 2016-10-10 08:11 | PCM.ANEP2 ---
Post Anesthesia Evaluation ASA/CMS Post Anesthesia Date of Service: Oct 09, 2016 VS in Patient's Normal Range?: Yes Resp Stable; Airway Patent?: Yes CV Function & Hydration Stable: Yes Mental Status Recovered?: Yes Pain control Satisfactory?: Yes N/V Control Satisfactory?: Yes Eloy Miguel MD Oct 10, 2016 08:11
[2016-10-10] MEDS: Polyethylene Glycol (PEG) 17 Gm Powder PO SCH (08:30)
--- NOTE | 2016-10-10 09:17 | PROG NOTE ---
[address] [address] PROGRESS NOTE PATIENT: GUILLERMO GUERRA : 1945 MR#: [id number] ADMIT: 10/09/2016 JOB ID: [id number] DATE: 10/10/2016 SUBJECTIVE: The patient is seen in followup. She feels much better today than yesterday morning. She has no nausea. She has not passed any flatus or bowel movement yet. Pain is well controlled. OBJECTIVE: Temperature 36.7, pulse 71, blood pressure 166/91, saturation 95% on room air. General: She is sitting up in bed, in no acute distress. HEENT: Nasogastric tube has a scant output, 50 cc overnight. Chest is clear. Heart: Regular rate and rhythm. No murmurs. Abdomen is soft, nondistended. Her incision is clean with no erythema. Bowel tones are present but are hypoactive. LABORATORIES: White blood cell count 11.1, hematocrit 36.0, platelets 223. Creatinine 1.06, glucose 131. ASSESSMENT AND PLAN: A 70-year-old woman with a strangulated umbilical hernia with small bowel necrosis, postoperative day one status post exploratory laparotomy, small bowel resection with anastomosis. She is doing well clinically. Nasogastric tube was removed this morning. She will be kept n.p.o. today until she has some return of bowel function. If she feels good this afternoon with no nausea, she could be started on some limited clear liquids. She has relatively poorly controlled hypertension, so metoprolol 5 mg IV q.6 h. has been ordered. She does not take anything at baseline for blood pressure in the outpatient setting.
[2016-10-10] MEDS: Famotidine Inj 20 MG in IV Premix 1 EACH IV SCH ×2 (09:19→22:03)
[2016-10-10] MEDS: Acetaminophen IV 1,000 mg IV SCH ×2 (13:58→19:29)
--- NOTE | 2016-10-10 15:13 | NUR ---
VS/Pain/activity/mentation Hypertensive, IV metoprolol given as ordered. HR did bounce from 41-low 50s for about 5 minutes after metoprolol given. Asymptomatic. Monitored closely in room. MD paged to inform; is in OR and will call back. Reports pain 0 at rest, but up to 5/10 with activity. Initially declined all pain meds, then accepted IV Tylenol. Denies Tylenol allergy, and received two doses on previous shift with no apparent adverse effects. Encouraging continued use of scheduled Tylenol for pain. Pt continues to refuse all narcotics despite education. Up walking in room twice and sat in chair. Will encourage increasing activity/ambulation as pain is better controlled. Uses incentive spirometer with coaching. Alert and oriented, but appears to have some memory problems and slight confusion. Has been found pushing buttons on IV pump and did not remember IS teaching that only occurred one hour previous. Also, stated she had been "sitting in the chair and moving all my stuff around the room" when, in fact, she had not yet been OOB. Also stated "Dr Warren told me I had to stay for another surgery" then could not tell me who Dr Warren is. Dr Crane is her surgeon and the only provider managing her care at this time. Had stated that she has post concussion syndrome and that "it takes longer to think." Continue to monitor closely. [place] alarm on in chair and bed.
[2016-10-10] MEDS: Furosemide 10 mg/mL 2 mL Inj IVPUSH SCH ×2 (18:31→23:44)
[2016-10-11] MEDS: Acetaminophen IV 1,000 mg IV SCH ×3 (02:00→14:14)
[2016-10-11 02:18] VITALS: BP 167/99; PULSE 101; RESP 20; O2SAT 95
[2016-10-11] MEDS ORDERED: Haloperidol 5 mg/mL Inj IM ONE (02:35)
--- NOTE | 2016-10-11 05:39 | NUR ---
NOC PT had a bit of a rough night. HEr mentation yesterday was reportedly a "bit off." At start of my shift, pt was oriented. HOwever, around 0200 PT woke up and had no idea who or where she was. SHe had also pulled out her IV that took 6 attempts to get in. [place]. PT was not able to reorient and did not believe this RN. This RN called her who spoke with her on the phone and was agreeable to come in. SPoke with MD Manuela Zuniga who ordered 2mg of haldol. Just as this RN was set to adm. haldol, pt became re-oriented. IT took her a total of about 20 minutes from when she woke up. HEr then arrived and pt was back to baseline. She was very apologetic, but scared as to why this would happen. RN explained about hospital induced delirium. PT was receptive. HEr b/p has been hypertensive in the 160's after lasix was given. PT diuresed well. Anton draining clear, yellow urine. IV fluids infusing. PT denies any pain except with movement she is a little guarded. ABd post op dressing in place with old drainage. BS hypo, but pt reports passing flatus. She is up in room with SBA and tolerates well. Again, haldol was NOT given. WIll CTM.
[2016-10-11] MEDS: Dextrose 5% Lactated Ringer's 1,000 ML IV SCH ×2 (06:09→13:35)
[2016-10-11 06:19] LABS: BASOPHILS % (AUTO) 0.2 % (0-3); EOSINOPHILS % (AUTO) 1.6 % (0-5); MONOCYTES % (AUTO) 9.8 % (4-12); Mean Corpuscular Hemoglobin 27.6 pg (27.0-35.0); Mean Corpuscular Volume 87.1 fL (81-100); Platelet Count 187 bil/L (150-400)
--- NOTE | 2016-10-11 07:43 | PCM.PNSURG ---
Subjective Visit Information: Reason for Visit Incarcerated Ventral Hernia Surgery/Surgery Date HERNIA REPAIR 10/09/16 Post-Op Day # Date of Admission: Oct 09, 2016 at 01:46 Hospital Day # Subjective: some confusion overnight and this am, moves all 4, no flatus or BM yet, no nausea Objective Objective Awake in bed Slight disorientation to time and place Abd: incision clean with gato Vital Sign- Last 8 Hours Date Time Temp Pulse Resp B/P Pulse Ox O2 Delivery O2 Flow Rate FiO2 10/11/16 02:18 36.7 101 20 167/99 95 Room Air 10/10/16 23:42 36.7 78 16 167/98 94 Intake and Output- Last 8 Hour 10/11/16 Cumulative From/Thru 07:00 10/08/16 21:13 - 10/11/16 06:10 Intake Total 824 ml 5314 ml Output Total 2700 ml 5800 ml Balance -1876 ml -486 ml Intake Oral 0 ml 0 ml IV Total 824 ml 5314 ml Output Urine Total 2700 ml 5700 ml Gastric Drainage Total 0 ml Drainage Total 50 ml Estimated Blood Loss 50 ml # Bowel Movements 0 0 Result Diagram: 10/11/16 0520 10/11/16 0520 Assessment & Plan Impression POD #2 s/p SB resection Morbid obesity Problems: Plan OK to have ice chips Echols out today OOB/ambulate Await bowel function return VTE Prophylaxis: Sub-Q Heparin (Unfractionated) Jean-Pierre Harris MD Oct 11, 2016 07:42
[2016-10-11 08:00] VITALS: BP 155/92; PULSE 74; RESP 15; O2SAT 93
[2016-10-11 10:41] VITALS: BP 158/94
[2016-10-11] MEDS: Polyethylene Glycol (PEG) 17 Gm Powder PO SCH (10:54)
[2016-10-11] MEDS: Heparin 5,000 Unit/mL Inj SUBQ SCH ×2 (10:56→16:41)
[2016-10-11] MEDS: Famotidine Inj 20 MG in IV Premix 1 EACH IV SCH ×2 (10:58→21:14)
--- NOTE | 2016-10-11 12:25 | NUR ---
JAYLEEN JAYLEEN Signed
[2016-10-11] MEDS: Furosemide 10 mg/mL 2 mL Inj IVPUSH SCH ×2 (13:51→16:30)
[2016-10-11 17:29] VITALS: BP 129/85; PULSE 96; RESP 17; O2SAT 95
--- NOTE | 2016-10-11 18:31 | NUR ---
Pressure/Meds Pt stated she was having more "bloating and pressure in abdomen this PM. Pt encouraged to get OOB and walk in hallways to help dispel gas. Abdomen is nontender, soft and dressing has only small amount of sero-sanguineous drainage from dressing change earlier (per MD). Pt still having minimal pain and orders changed from IV Tylenol to PO. Pt IV infiltrated this AM and was w/o IV for 2 hours before new one placed by IV therapy. IV Lasix was given late because of this. 1630 dose non-administered because not enough time had passed from previous dose.
--- NOTE | 2016-10-11 19:37 | NUR ---
Schroeder Schroeder removed at 0750 by student nurse Yamila, 10cc fluid out of balloon and schroeder removed intact. Pt able to void within 1 hour and had no problems voiding during entire shift.
[2016-10-11 21:00] VITALS: BP 112/78; PULSE 114; RESP 20; O2SAT 97
[2016-10-12] MEDS: Heparin 5,000 Unit/mL Inj SUBQ SCH (00:30)
[2016-10-12] MEDS: Furosemide 10 mg/mL 2 mL Inj IVPUSH SCH (00:30)
[2016-10-12] MEDS: Dextrose 5% Lactated Ringer's 1,000 ML IV SCH (00:36)
--- NOTE | 2016-10-12 01:38 | NUR ---
AMGertrude. Spoke with on phone twice, patient spoke with on phone, signed AMA paper and has proceeded to the exit escorted by security. IV DCd intact, pt reports no pain or nausea at this time. Addendum: 10/12/16 at 0147 by EMERSON FRAZIER RN Dr Steven Gutierrez
--- NOTE | 2016-10-13 13:21 | PATH ---
SURGICAL PATHOLOGY Attending Physician:Jose Lua CASE STATUS: Signed Out PATIENT NAME: GUILLERMO GUERRA PID: [id number] : 1945 DATE COLLECTED:10/09/2016 20:47 SPECIMEN: Small Intestine, Non-Tumor Resection CLINICAL HISTORY: MACERATED VENT HERNIA, STRANGULATED UMBILICAL HERNIA 1). SMALL BOWEL 14CM FINAL DIAGNOSIS: 1.RESECTED SEGMENT OF SMALL BOWEL (14 CM) CLINICALLY ASSOCIATED WITH STRANGULATED UMBILICAL HERNIA: EXTENSIVE HEMORRHAGIC ISCHEMIC NECROSIS. RESECTION MARGINS APPEAR VIABLE. ICD10 CODE K42.1 GROSS DESCRIPTION: The specimen is received in formalin, labeled with the patient's name, sublabeled as sml bowel and consists of an unoriented segment of small bowel (length-14.1 cm, resection margin #1 diameter-2.5 cm, of resection margin #2 diameter-2.1 cm) with attached mesentery (up to 2.7 cm in depth). The serosa and mucosa are red-brown, congested, smooth shiny and flat. Normal serosa and mucosa are identified at the resection margins. No nodules, masses or lesions are identified. Ink code: black-resection margin. Section code: (A) resection margin #1, longitudinally sectioned, printing sales representative; (B) resection margin #2, longitudinally sectioned, printing sales representative; (C-F) small bowel segment, serially sectioned and submitted from resection margin #1 to #2, printing sales representative. 10/10/16 JM MICRO DESCRIPTION: See diagnosis. ICD-9 CODES: CPT CODES: 1: 50861 Electronically Signed Out Prieto Travis MD [facility] [address], [place] [address] Technical component performed at [facility], [address] [place] [address] Ave[address], [place], [address]
--- NOTE | 2016-10-14 08:15 | PCM.DC.SUR ---
Discharge Summary Date of Service: Date of Hospital Admission: Oct 09, 2016 at 01:46 Date of Operation(s): 10/09/2016 Date of Discharge: 10/12/2016 Diagnosis at Time of Discharge Primary diagnosis: Strangulated umbilical hernia with small bowel obstruction Other chronic conditions: 1. Morbid obesity, BMI 45.4 2. Hypertension 3. Diabetes mellitus, diet controlled. 4. Hypothyroidism 5. History of diverticulitis Problems: Operation Exploratory laparotomy, small bowel resection with anastomosis Brief History and Physical: The patient is an obese 70-year-old woman who was in her usual state of health until the afternoon prior to admission when she suddenly developed a severe pain diffusely across her mid abdomen, associated with some nausea. Pain brought her to her knees in the bathroom, which was unrelenting. She had not had any vomiting. Her history over the past 6 months has been recurrent bouts of lower abdominal pain, and she has been diagnosed clinically with sigmoid diverticulitis, treated with several rounds of oral antibiotics. She has never had a colonoscopy. She had some chronic alternating constipation and diarrhea since that diagnosis. In the emergency department she was found to be bradycardic with a heart rate in the high 40s. She had severe abdominal pain. A CT scan of the abdomen and pelvis was obtained with contrast, which showed a hernia at the umbilicus containing a loop of small bowel with obstruction and proximal small bowel dilation. There was no free fluid. There was diverticulosis of the sigmoid colon and no other abnormalities. Consultants: None Hospital Course: The patient was admitted and underwent the above-mentioned operation without complication. Nasogastric tube was able to be removed the following day. She remained nothing by mouth as she had no bowel function at that time. Through the night of her first postsurgical day she had confusion and disorientation. The following day diet was not advanced as bowel function had still not returned , Echols catheter was removed. The patient left the hospital with her AGAINST MEDICAL ADVICE during the night of her second postsurgical day. Pathology: FINAL DIAGNOSIS: 1.RESECTED SEGMENT OF SMALL BOWEL (14 CM) CLINICALLY ASSOCIATED WITH STRANGULATED UMBILICAL HERNIA: EXTENSIVE HEMORRHAGIC ISCHEMIC NECROSIS. RESECTION MARGINS APPEAR VIABLE. Disposition: The patient left the hospital AGAINST MEDICAL ADVICE during the night of her second postsurgical day. Aspirin (Aspirin) 325 Mg Tablet 650 MG PO QAM (Reported) copies to: Stefano King MD, Fred H PA-C Oct 14, 2016 08:15
== END 2016-10-12 01:41 | disposition left against medical advice (07) | DRG 330 ==
LOC: EDBD 20:55 → SED 21:41 → OSC 10-09 01:46
PROVIDERS: ADMIT Student in an Organized Health Care Education/Training Program; ATTEND Student in an Organized Health Care Education/Training Program
PROC: 0D9670Z Drainage of Stomach with Drainage Device, Via Natural or Artificial Opening (ICD-10-PCS; 2016-10-08)
PROC: 0DT80ZZ Resection of Small Intestine, Open Approach (ICD-10-PCS; principal; 2016-10-09 04:30)
DX: K42.0 Umbilical hernia with obstruction, without gangrene (principal); Z68.42 Body mass index [BMI] 45.0-49.9, adult; Z79.82 Long term (current) use of aspirin; E66.01 Morbid (severe) obesity due to excess calories; K57.10 Diverticulosis of small intestine without perforation or abscess without bleeding

== ENCOUNTER 2016-11-07 06:36 | Emergency (ER) | payer MEDICARE, OTHER ==
[~2016-11-07] VITALS: Ht 162.6 cm; Wt 147.7 kg
[~2016-11-07 06:36] MED LIST changes: -CEFU500T61 PO; -CIPR-231 PO; -METR500T PO
--- NOTE | 2016-11-07 06:38 | ED.REPORT ---
HPI-Dyspnea / Wheezing Date of Service November 07, 2016 ED Provider: Veronica Lewis MD Patient is a 71 year old female who had a ruptured bowel surgery on 10/09/16 who presents to the ED complaining of tongue swelling onset 0500. Associated symptoms include throat swelling and shortness of breath. She denies rash, nausea or vomiting. The patient reports she has been having these symptoms intermittently for the past six months but it feels worse this morning. Patient states she has not started any new medications recently. Nursing Notes Stated Complaint: SOB,TONGUE SWOLLEN Nursing Notes Reviewed: Yes Allergies: Coded Allergies: Penicillins (Verified Allergy, Intermediate, Anaphylaxis, 11/07/16) Sulfa (Sulfonamide Antibiotics) (Verified Allergy, Intermediate, rash, 06/14) doxycycline (Verified Allergy, Unknown, 11/07/16) Opioids - Morphine Analogues (Verified Adverse Reaction, Unknown, GI upset /combative, 11/07/16) codeine (Verified Adverse Reaction, Unknown, angry, 11/07/16) hydromorphone (Verified Adverse Reaction, Unknown, depressed respiration, 11/07/16) ibuprofen (Verified Adverse Reaction, Unknown, upset stomach, 11/07/16) propoxyphene (Verified Adverse Reaction, Unknown, angry, 11/07/16) Scheduled Aspirin (Aspirin) 325 Mg Tablet 650 MG PO QAM General Time Seen by MD: 06:38 Chief Complaint Other (tongue swelling) Hx Obtained From: Patient Arrived By: Walk-in Sudden in Onset?: No Onset Occurred: More than a week ago... (6 months) Symptom Duration: Intermittent Recent Healthcare: Recent doctor visit, Recent hospitalization Similar Sx Previous: Yes Past Medical History Past Medical History Hypothyroidism Diverticulitis Reports: Diabetes mellitus, Hypertension Reports: Atrial fibrillation Past Surgical History L arm surgery ruptured bowel surgery Family History Noncontributory Smoking History Never Smoker Social History Drug Use: Denies drug use Other Social History: Good social support, , Local resident Ambulatory Status Independent Review of Systems Ears / Nose / Throat: Reports: Throat swelling, Tongue swelling Respiratory: Reports: Shortness of breath, Denies: Non-productive cough Skin: Denies Rash Complete sys rev & neg: except as marked. GI: Denies: Nausea, Vomiting Physical Exam Initial Vital Signs Vital Signs (First) Date Time Temp Pulse Resp B/P Pulse Ox O2 Delivery O2 Flow Rate FiO2 11/07/16 06:45 37.0 85 13 166/107 100 Room Air Initial VS: Reviewed, Vital signs abnormal General/Constitutional: Awake, Alert Behavior: Positive: Anxious Neck: Atraumatic, Full range of motion Respiratory / Chest: Atraumatic, Breath sounds NL, Breath sounds = bilat, No respiratory distress, No stridor Cardiovascular: Heart rate NL, Regular rhythm, Heart sounds NL MOUTH: tongue swollen Abdomen: Atraumatic, Soft, Non-tender Lower Extremity / Pelvis / MS: Atraumatic, Full range of motion, No edema Skin: Atraumatic, Color NL, No rash, Warm, Dry Neurologic: Oriented X3, Speech NL, No motor deficits, No sensory deficits Head / Eyes: Atraumatic, Normocephalic, PERRL, EOMI Upper Extremity / MS: Atraumatic, Full range of motion, No edema Psychiatric: Affect NL, Mood NL Interpretation & Diagnostics Lab Results Interpretation Test 11/07/16 06:45 Hold Purple Top Tube Received (Received) Hold Blue Top Tube Received (Received) Hold [place] Top Tube Received (Received) Hold Molina Top Tube Received (Received) Re-Eval/Medical Decision Med Decision/Clinical Course The patient presents with tongue swelling, she has had angioedema in the past from unclear cause. She was given multiple medications with improvement in her swelling. Source of Hx: Old records Re-Evaluation/Progress #1: Time of Eval: 07:05 Patient Status: Condition improved Re-Evaluation/Progress Note: Patient reports that her tongue feels less swollen. Re-Evaluation/Progress #2: Time of Eval: 09:09 Patient Status: Condition improved Re-Evaluation/Progress #3: Time of Eval: 09:40 Patient Status: Condition improved Re-Evaluation/Progress Note: Discussed plan for discharge. The patient understands and agrees to the plan for discharge. All questions were addressed. Counseled Regarding: Diagnosis, Lab results, Need for follow-up, When/why to return to ED Discharge & Departure Impression: Primary Impression: Angioedema Encounter type: initial encounter Qualified Code: T78.3XXA - Angioneurotic edema, initial encounter Disposition: Home Discharge Condition All VS Reviewed: Yes Condition: Stable Additional Instructions: Thank you for trusting us with your care today. You can take Benadryl or Pepsin at home if the swelling is minor. Follow up with your primary care physician to continue working on what is causing your swelling. Please return to the emergency department if you develop any new or worsening symptoms including shortness of breath or difficulty swallowing. Referrals: Stefano King MD (PCP) [place] Attestation Portions of this note were transcribed by Sylvie Menard. I, Dr. Lewis personally performed the history, physical exam and medical decision-making; I reviewed and confirmed the accuracy of the information in the transcribed note. Signed by: Sabas Cao, 11/07/16 and 0650 copies to: Stefano King MD, Jena M MD November 07, 2016 06:38 Shanta Menard November 07, 2016 06:46
[2016-11-07] MEDS ORDERED: Famotidine Inj 20 MG in IV Premix 1 EACH IV ONE (06:40)
[2016-11-07 06:45] VITALS: BP 166/107; PULSE 85; RESP 13; O2SAT 100
[2016-11-07] MEDS ORDERED: MethylprednisoLONE Sodium Succinate 62.5 mg/mL 2 mL Inj IVPUSH ONE (06:45)
[2016-11-07] MEDS ORDERED: 0.9% Sodium Chloride 500 ML IV ONE (06:45)
[2016-11-07 09:22] VITALS: BP 172/88; PULSE 75; RESP 18; O2SAT 97
[2016-11-07 10:10] VITALS: BP 152/70; PULSE 73; RESP 12; O2SAT 97
[2016-11-07 10:23] VITALS: BP 152/70; PULSE 73; RESP 12; O2SAT 97
== END 2016-11-07 10:24 | disposition home or self-care (01) ==
LOC: SED 06:36
DX: T78.3XXA Angioneurotic edema, initial encounter (principal); R22.0 Localized swelling, mass and lump, head; R06.02 Shortness of breath; X58.XXXA Exposure to other specified factors, initial encounter; Y93.9 Activity, unspecified; Y99.8 Other external cause status; Y92.9 Unspecified place or not applicable; E11.9 Type 2 diabetes mellitus without complications; I10 Essential (primary) hypertension; E03.9 Hypothyroidism, unspecified; I48.91 Unspecified atrial fibrillation; Z88.2 Allergy status to sulfonamides; Z88.6 Allergy status to analgesic agent; Z88.5 Allergy status to narcotic agent; Z88.8 Allergy status to other drugs, medicaments and biological substances; Z88.1 Allergy status to other antibiotic agents; Z79.82 Long term (current) use of aspirin; Z98.890 Other specified postprocedural states; Z88.0 Allergy status to penicillin
CPT/HCPCS: 96361; 96372; 96374; 96375; 99284; J0171; J1200; J2930; J3490; J7040